=== PATIENT | female | born 1955 | race Caucasian/White ===

== ENCOUNTER 2020-07-30 11:01 | Day surgery (SDC) | payer OTHER ==
[~2020-07-30 11:01] MED LIST: Lactated Ringers 1,000 ML IV SCH; Sodium Chloride 0.9% 10 ML Syringe FLUSH PRN
[2020-07-30] MEDS ORDERED: Propofol 200 MG/20 ML SDV ONE (11:52)
--- NOTE | 2020-07-30 13:44 | OR ---
PREOPERATIVE DIAGNOSIS: Epigastric pain. POSTOPERATIVE DIAGNOSIS: Epigastric pain. PROCEDURE PERFORMED: Esophagogastroduodenoscopy with antral biopsy. INDICATIONS: Ms. Morgan is a 65-year-old female with history of ongoing epigastric pain, some lower abdominal pain, and some intermittent diarrhea, presents for EGD for further evaluation. PROCEDURE IN DETAIL: This was done in the endoscopy suite. Sedation was given per anesthesia. The scope was inserted down the esophagus into the stomach through the duodenum into the first and second portion of duodenum. First and second portion of duodenum were normal. Scope was slowly withdrawn. Mild-to- moderate antral gastritis. Biopsies were taken for H pylori. The scope was retroflexed. Small hiatal hernia. The scope was slowly withdrawn. Mild esophagitis seen. The remainder of the esophagus was normal. FINAL DIAGNOSES: 1. Mild esophagitis, small hiatal hernia. 2. Mild antral gastritis. BKD: 07/30/2020 12:26:15 MODL: 07/30/2020 12:54:09 /[id number]
== END 2020-07-30 13:35 | disposition home or self-care (01) ==
LOC: VM.SDS 11:01
PROVIDERS: ATTEND Surgery
DX: K29.50 Unspecified chronic gastritis without bleeding (principal); K44.9 Diaphragmatic hernia without obstruction or gangrene; K20.90 Esophagitis, unspecified without bleeding; I12.9 Hypertensive chronic kidney disease with stage 1 through stage 4 chronic kidney disease, or unspecified chronic kidney disease; N18.31 Chronic kidney disease, stage 3a; F33.0 Major depressive disorder, recurrent, mild; E78.2 Mixed hyperlipidemia; F41.9 Anxiety disorder, unspecified; Z01.812 Encounter for preprocedural laboratory examination; Z20.828 Contact with and (suspected) exposure to other viral communicable diseases; Z98.890 Other specified postprocedural states; Z88.0 Allergy status to penicillin; Z91.048 Other nonmedicinal substance allergy status; Z79.899 Other long term (current) drug therapy; Z79.82 Long term (current) use of aspirin
CPT/HCPCS: 43239; 87635; J2704; J7120; 00811; U0002

== ENCOUNTER 2021-08-02 06:43 | Emergency (ER) | payer OTHER ==
[2021-08-02] MEDS ORDERED: Morphine 4 MG/ML Syringe IVPUSH ONE (07:27)
[2021-08-02] MEDS ORDERED: Metoclopramide 10 MG/2 ML SDV IVPUSH ONE (07:27)
[2021-08-02] MEDS ORDERED: Sodium Chloride 0.9% 1,000 ML IV SCH (07:30)
--- NOTE | 2021-08-02 07:39 | EDM.PDOC ---
ED HPI GENERAL MEDICAL PROBLEM - General Chief Complaint: General Stated Complaint: Nausea, vomiting, post surgical Time Seen by Provider: 08/02/21 07:00 Source of Information: Reports: Patient History Limitations: Reports: No Limitations - History of Present Illness INITIAL COMMENTS - FREE TEXT/NARRATIVE: Pt. presents to ER with complaints of nausea, vomiting and abdominal cramping. Pt. underwent a same day laproscopic appendectomy and salpingo-oophorectomy on 07/30/2021. Pt. has a previous history of hysterectomy and cholecystectomy. Pt. states that her symptoms started today at 0200. She is unable to hold down fluids at this time. She states that the frequency of vomiting has decreased somewhat. Pt. has been feeling well up until this AM. She has been eating and drinking. She has been passing gas and has had bowel movements. She denies any fever or chills. No chest pain or shortness of breath. Pt. was prescribed lortab 5/325mg and states that she has only needed to take a couple of doses, as the post op pain has been minimal. Onset: Today Onset Date: 08/02/21 Location: Reports: Abdomen general abdomen Pain Score (Numeric/FACES): 6 abdomen incision Pain Score (Numeric/FACES): 4 - Related Data Allergies Allergy/AdvReac Type Severity Reaction Status Date / Time penicillin V Allergy Hives Verified 08/02/21 07:22 Home Meds: Home Meds Aspirin 81 mg PO DAILY 07/24/20 [History] Calcium Carbonate/Vitamin D3 [Calcium 600 mg-D3 10 Mcg Sfgl] 1 tab PO TID 07/24/20 [History] Glucosamine/D3/Boswellia Jana [Osteo Bi-Flex Caplet] 1 tab PO DAILY 07/24/20 [History] Loratadine [Claritin] 10 mg PO DAILY 07/24/20 [History] Triamterene/Hydrochlorothiazid [Dyazide 37.5-25 Capsule] 1 cap PO DAILY 07/24/20 [History] Hydrocodone/Acetaminophen [HYDROcodone-Acetaminophen 5-325 MG] 1 tab PO Q4H 08/02/21 [History] Sertraline [Zoloft] 100 mg PO DAILY 08/02/21 [History] Past Medical History HEENT History: Reports: Other (See Below) Other HEENT History: BILATERAL MYOPIC DEGENERATION Cardiovascular History: Reports: High Cholesterol, Hypertension Genitourinary History: Reports: Other (See Below) Other Genitourinary History: leiomyoma of utererus; stage 3a CKD; solitary breast cyst Musculoskeletal History: Reports: Other (See Below) Other Musculoskeletal History: De Quervain's tenosynovitis Psychiatric History: Reports: Depression Hematologic History: Reports: Anemia ED ROS GENERAL - Review of Systems Review Of Systems: See Below Constitutional: Reports: Decreased Appetite. Denies: Fever, Chills, Night Sweats HEENT: Reports: No Symptoms Respiratory: Reports: No Symptoms Cardiovascular: Reports: No Symptoms Endocrine: Reports: No Symptoms GI/Abdominal: Reports: Abdominal Pain, Decreased Appetite, Distension, Nausea, Vomiting. Denies: Black Stool, Bloody Stool, Hematemesis, Hematochezia, Melena : Reports: No Symptoms Musculoskeletal: Reports: No Symptoms Skin: Reports: No Symptoms Neurological: Reports: No Symptoms Psychiatric: Reports: No Symptoms Hematologic/Lymphatic: Reports: No Symptoms Immunologic: Reports: No Symptoms ED EXAM, GENERAL - Physical Exam Exam: See Below Exam Limited By: No Limitations General Appearance: Alert, WD/WN, No Apparent Distress Throat/Mouth: Normal Lips, Normal Oropharynx, Normal Voice, No Airway Compromise Head: Atraumatic, Normocephalic Neck: Normal Inspection Respiratory/Chest: No Respiratory Distress, Lungs Clear, Normal Breath Sounds, No Accessory Muscle Use, Chest Non-Tender Cardiovascular: Normal Peripheral Pulses, Regular Rate, Rhythm, No Edema, No JVD GI/Abdominal: Soft, Non-Tender, No Distention, No Mass (Female) Exam: Deferred Rectal (Female) Exam: Deferred Back Exam: Normal Inspection, Full Range of Motion Extremities: Normal Inspection, Normal Range of Motion, Non-Tender, No Pedal Edema, Normal Capillary Refill Neurological: Alert, Oriented, CN II-XII Intact, Normal Cognition, Normal Reflexes, No Motor/Sensory Deficits Psychiatric: Normal Affect, Normal Mood Skin Exam: Warm, Dry, Intact, Normal Color, No Rash Course - Vital Signs Last Recorded V/S: Last Vital Signs Temp 36.1 C 08/02/21 06:43 Pulse 68 08/02/21 08:54 Resp 14 08/02/21 08:54 BP 117/75 08/02/21 08:54 Pulse Ox 97 08/02/21 08:54 - Orders/Labs/Meds Orders: Active Orders 24 hr Category Date Time Status Gastrointestinal Tube Mgmt [RC] ASDIRECTED Care 08/02/21 10:28 Active Lactated Ringers [Ringers, Lactated] 1,000 ml Med 08/02/21 10:15 Active IV ASDIRECTED Sodium Chloride 0.9% [Normal Saline] 1,000 ml Med 08/02/21 07:30 Active IV ASDIRECTED NG [Nasogastric Orogastric Tube Insertion] [OM.PC] Oth 08/02/21 10:28 Ordered Routine Medication Orders Sodium Chloride (Normal Saline) 1,000 mls @ 1,000 mls/hr IV ASDIRECTED AKIN Last Admin: 08/02/21 07:39 Dose: 1,000 mls/hr Documented by: LIUDMILA Lactated Ringer's (Ringers, Lactated) 1,000 mls @ 250 mls/hr IV ASDIRECTED AKIN Last Admin: 08/02/21 10:13 Dose: 250 mls/hr Documented by: LIUDMILA Labs: Laboratory Tests 08/02/21 08/02/21 08/02/21 Range/Units 07:12 07:12 07:12 WBC 13.4 H (4.0-10.0) x10^3/uL RBC 5.75 H (4.00-5.50) x10^6/uL Hgb 16.6 H (12.0-16.0) g/dL Hct 48.3 H (33.0-47.0) % MCV 84.0 (78.0-93.0) fL MCH 28.9 (26.0-32.0) pg MCHC 34.4 (32.0-36.0) g/dL RDW Coeff of Nestor 12.2 (10.0-15.0) % Plt Count 265 (130-400) x10^3/uL Immature Gran % (Auto) 0.10 (0.00-0.43) % Neut % (Auto) 83.3 H (50.0-80.0) % Lymph % (Auto) 7.1 L (25.0-50.0) % Russell % (Auto) 5.6 (2.0-11.0) % Eos % (Auto) 3.6 (0.0-4.0) % Baso % (Auto) 0.3 (0.2-1.2) % Neut # (Auto) 11.1 H (1.8-7.7) x10^3/uL Lymph # (Auto) 1.0 (1.0-4.8) x10^3/uL Russell # (Auto) 0.8 (0.0-0.8) x10^3/uL Eos # (Auto) 0.5 (0.0-0.5) x10^3/uL Baso # (Auto) 0.0 (0.0-0.2) x10^3/uL Immature Gran # (Auto) 0.02 (0.00-0.07) x10^3/uL Sodium 141 (136-145) mmol/L Potassium 3.5 (3.5-5.1) mmol/L Chloride 99 (98-107) mmol/L Carbon Dioxide 29 (21-32) mmol/L Anion Gap 16.5 H (5-15) mmol/L BUN 23 H (7-18) mg/dL Creatinine 1.3 H (0.55-1.02) mg/dL Est Cr Clr Drug Dosing 37.75 mL/min Estimated GFR (MDRD) 41 Glucose 159 H (70-99) mg/dL Lactic Acid (0.4-2.0) mmol/L Calcium 10.6 H (8.5-10.1) mg/dL Corrected Calcium 10.5 H (8.5-10.1) mg/dL Total Bilirubin 0.7 (0.2-1.0) mg/dL AST 22 (15-37) U/L ALT 27 (14-59) U/L Alkaline Phosphatase 91 (46-116) U/L C-Reactive Protein 7.9 H (<=0.9) mg/dL Total Protein 7.5 (6.4-8.2) g/dL Albumin 4.1 (3.4-5.0) g/dL Globulin 3.4 Albumin/Globulin Ratio 1.21 Procalcitonin (0.1-0.50) ng/mL 08/02/21 08/02/21 Range/Units 07:12 07:32 WBC (4.0-10.0) x10^3/uL RBC (4.00-5.50) x10^6/uL Hgb (12.0-16.0) g/dL Hct (33.0-47.0) % MCV (78.0-93.0) fL MCH (26.0-32.0) pg MCHC (32.0-36.0) g/dL RDW Coeff of Nestor (10.0-15.0) % Plt Count (130-400) x10^3/uL Immature Gran % (Auto) (0.00-0.43) % Neut % (Auto) (50.0-80.0) % Lymph % (Auto) (25.0-50.0) % Russell % (Auto) (2.0-11.0) % Eos % (Auto) (0.0-4.0) % Baso % (Auto) (0.2-1.2) % Neut # (Auto) (1.8-7.7) x10^3/uL Lymph # (Auto) (1.0-4.8) x10^3/uL Russell # (Auto) (0.0-0.8) x10^3/uL Eos # (Auto) (0.0-0.5) x10^3/uL Baso # (Auto) (0.0-0.2) x10^3/uL Immature Gran # (Auto) (0.00-0.07) x10^3/uL Sodium (136-145) mmol/L Potassium (3.5-5.1) mmol/L Chloride (98-107) mmol/L Carbon Dioxide (21-32) mmol/L Anion Gap (5-15) mmol/L BUN (7-18) mg/dL Creatinine (0.55-1.02) mg/dL Est Cr Clr Drug Dosing mL/min Estimated GFR (MDRD) Glucose (70-99) mg/dL Lactic Acid 1.9 (0.4-2.0) mmol/L Calcium (8.5-10.1) mg/dL Corrected Calcium (8.5-10.1) mg/dL Total Bilirubin (0.2-1.0) mg/dL AST (15-37) U/L ALT (14-59) U/L Alkaline Phosphatase (46-116) U/L C-Reactive Protein (<=0.9) mg/dL Total Protein (6.4-8.2) g/dL Albumin (3.4-5.0) g/dL Globulin Albumin/Globulin Ratio Procalcitonin 0.08 L (0.1-0.50) ng/mL Meds: Medications Generic Name Dose Route Start Last Admin Trade Name Freq PRN Reason Stop Dose Admin Sodium Chloride 1,000 mls @ 1,000 mls/hr 08/02/21 07:30 08/02/21 07:39 Normal Saline IV 1,000 mls/hr ASDIRECTED AKIN Administration Lactated Ringer's 1,000 mls @ 250 mls/hr 08/02/21 10:15 08/02/21 10:13 Ringers, Lactated IV 250 mls/hr ASDIRECTED AKIN Administration Discontinued Medications Generic Name Dose Route Start Last Admin Trade Name Freq PRN Reason Stop Dose Admin Iopamidol 75 ml 08/02/21 09:34 08/02/21 10:22 Iopamidol 612 Mg/Ml 100 Ml Bottle IVPUSH 08/02/21 09:35 75 ml ONETIME ONE Administration Metoclopramide HCl 10 mg 08/02/21 07:27 08/02/21 07:37 Metoclopramide 10 Mg/2 Ml Sdv IVPUSH 08/02/21 07:28 10 mg ONETIME ONE Administration Morphine Sulfate 4 mg 08/02/21 07:27 08/02/21 07:39 Morphine 4 Mg/Ml Syringe IVPUSH 08/02/21 07:28 4 mg ONETIME ONE Administration - Radiology Interpretation Free Text/Narrative:: SBO secondary to incarcerated umbilical hernia - Re-Assessments/Exams Free Text/Narrative Re-Assessment/Exam: IV access established. She was given a liter of NS in ER, then started on LR at 250/hr. Pt. was given IV dilaudid and reglan. She remained relatively pain free and without significant nausea/vomiting during stay. Initially attempted to send pt. to [facility] for incarcerated hernia but they have no beds and were unable to accept pt. pt. will be transferred to [facility]. [facility] is accepting. Departure - Departure Time of Disposition: 11:36 Disposition: DC/Tfer to Acute Hospital 02 Clinical Impression: Incarcerated hernia, SBO (small bowel obstruction) - Discharge Information Referrals: Jodi Dodd DO [Primary Care Provider] - Forms: ED Department Discharge, Interfacility Transfer [id number] Sepsis Event Note (ED) - Evaluation Sepsis Screening Result: No Definite Risk - Focused Exam Vital Signs: Vital Signs Temp Pulse Resp BP Pulse Ox 08/02/21 08:54 68 14 117/75 97 08/02/21 07:55 72 12 116/82 98 08/02/21 06:43 36.1 C 74 16 131/99 H 98 - Problem List Review Problem List Initiated/Reviewed/Updated: Yes - My Orders Last 24 Hours: My Active Orders 08/02/21 07:30 Sodium Chloride 0.9% [Normal Saline] 1,000 ml IV ASDIRECTED 08/02/21 10:15 Lactated Ringers [Ringers, Lactated] 1,000 ml IV ASDIRECTED 08/02/21 10:28 Gastrointestinal Tube Mgmt [RC] ASDIRECTED NG [Nasogastric Orogastric Tube Insertion] [OM.PC] Routine - Assessment/Plan Last 24 Hours: My Active Orders 08/02/21 07:30 Sodium Chloride 0.9% [Normal Saline] 1,000 ml IV ASDIRECTED 08/02/21 10:15 Lactated Ringers [Ringers, Lactated] 1,000 ml IV ASDIRECTED 08/02/21 10:28 Gastrointestinal Tube Mgmt [RC] ASDIRECTED NG [Nasogastric Orogastric Tube Insertion] [OM.PC] Routine Plan: Pt. will be transferred to [facility]. She is a code 1. [facility] was unable to accept patient. Pt. will be transported via [facility] ground ambulance. Report was called to JORGE L Young.
[2021-08-02 07:44] LABS: ANION GAP 16.5 mmol/L (5-15)
--- NOTE | 2021-08-02 08:04 | CR ---
[id number] RAD/RAD Abd Flat and Upright 2V Exam: RAD Abd Flat and Upright 2V Clinical Data: ABDOMINAL PAIN COMPARISON: CORRELATION IS MADE WITH THE CAT SCAN OF JULY 24, 2020 FINDINGS: There is small bowel distention There is no free air There are surgical changes. IMPRESSION: SMALL BOWEL OBSTRUCTION CONSIDER CAT SCAN Lion Daniel MD 08/02/21 0802 Thank you for allowing us to participate in the care of your patient.
[2021-08-02] MEDS ORDERED: Iopamidol 612 MG/ML 100 ML Bottle IVPUSH ONE (09:34)
[2021-08-02] MEDS ORDERED: Lactated Ringers 1,000 ML IV SCH (10:15)
--- NOTE | 2021-08-02 10:25 | CT ---
[id number] CT/CT Abdomen Pelvis W IV EXAM: CT Abdomen Pelvis W IV INDICATION: NAUSEA,VOMITTING,ABDOMEN PAIN,S/P APPY 07/30. COMPARISON: July 24, 2010. DISCUSSION: The proximal small bowel and stomach are fluid-filled and mildly dilated with the small bowel measuring up to about 31 mm. Transition point at a bowel containing umbilical hernia. These findings are consistent with incarceration. There is a small volume of free fluid in the pelvis. No pneumatosis or free air. Infiltrating subcutaneous edema in the abdominal wall. Scattered subcentimeter hepatic hypodensities are too small to further characterize, but of doubtful clinical significance. Prior cholecystectomy. 20 mm simple appearing cyst lower pole left kidney. Probable hysterectomy. Disc degeneration L2-L3. The pancreas, spleen, adrenal glands, right kidney, large bowel and distal small bowel are normal in appearance. IMPRESSION: 1. Mid small bowel obstruction secondary to an incarcerated umbilical hernia. Suraj Pitts MD 08/02/21 [phone] Thank you for allowing us to participate in the care of your patient.
== END 2021-08-02 12:10 | disposition short-term general hospital (02) ==
LOC: VM.ED 06:43
DX: K56.609 Unspecified intestinal obstruction, unspecified as to partial versus complete obstruction (principal); K46.0 Unspecified abdominal hernia with obstruction, without gangrene; I10 Essential (primary) hypertension; Z88.0 Allergy status to penicillin; Z79.82 Long term (current) use of aspirin; Z79.899 Other long term (current) drug therapy; Z90.710 Acquired absence of both cervix and uterus; Z90.49 Acquired absence of other specified parts of digestive tract; Z90.722 Acquired absence of ovaries, bilateral
CPT/HCPCS: 36415; 74019; 74177; 80053; 83605; 84145; 85025; 86140; 96374; 96375; 99285-25; J2270; J2765; J7030; J7120; Q9967

== ENCOUNTER 2021-08-06 09:10 | Inpatient (IN) | payer OTHER ==
[2021-08-06] MEDS ORDERED: diphenhydrAMINE 50 MG/ML SDV IVPUSH ONE (09:34)
[2021-08-06] MEDS ORDERED: Ondansetron 4 MG/2 ML SDV IV ONE (09:34)
[2021-08-06] MEDS ORDERED: Lactated Ringers 1,000 ML IV ONE (09:53)
--- NOTE | 2021-08-06 09:54 | EDM.PDOC ---
ED HPI GENERAL MEDICAL PROBLEM - General Chief Complaint: Gastrointestinal Problem Stated Complaint: VOMITTING Time Seen by Provider: 08/06/21 09:35 Source of Information: Reports: Patient History Limitations: Reports: No Limitations - History of Present Illness INITIAL COMMENTS - FREE TEXT/NARRATIVE: Patient comes emergency department with complaints of nausea vomiting abdominal pain and distention. This patient about 8 days ago had a surgery at where she had bilateral ovaries removed as well as her appendix removed laparoscopically. On Thursday she was seen in the emergency department here and she had ischemic incarcerated umbilical hernia. She was transferred to [facility] for emergent surgery did not have any beds available. She was discharged from the hospital yesterday following an ischemic incarcerated umbilical hernia. And some nausea on the way home from the hospital. Last night she started having more abdominal distention and bloating she vomited about 8 times during the night. She has dark brownish type vomit. She really does not have a lot of abdominal pain. She has been passing gas. She had one very small hard bowel movement at home. No fever no chills. No dysuria urinary frequency. She does complain of abdominal distention and bloating. Lower Abdomen Pain Score (Numeric/FACES): 2 - Related Data Allergies Allergy/AdvReac Type Severity Reaction Status Date / Time penicillin V Allergy Hives Verified 08/06/21 09:41 Home Meds: Home Meds Loratadine [Claritin] 10 mg PO DAILY PRN 07/24/20 [History] Triamterene/Hydrochlorothiazid [Dyazide 37.5-25 Capsule] 1 cap PO DAILY 07/24/20 [History] Aspirin [Aspirin EC] 81 mg PO DAILY 08/06/21 [History] Calcium Carbonate/Vitamin D3 [Caltrate-600 with Vit D Tab] 1 each PO BIDMEALS 08/06/21 [History] [id number] 149-Hyal [Glucosamine-Chondr Complex Tab] 1 each PO DAILY 08/06/21 [History] Sertraline [Zoloft] 50 mg PO DAILY 08/06/21 [History] Simvastatin 10 mg PO DAILY 08/06/21 [History] oxyCODONE 5 - 10 mg PO Q4H PRN 08/06/21 [History] polyethylene glycoL 3350 [MiraLAX] 17 gm PO DAILY 08/06/21 [History] Past Medical History HEENT History: Reports: Other (See Below) Other HEENT History: BILATERAL MYOPIC DEGENERATION Cardiovascular History: Reports: High Cholesterol, Hypertension Genitourinary History: Reports: Other (See Below) Other Genitourinary History: leiomyoma of utererus; stage 3a CKD; solitary breast cyst Musculoskeletal History: Reports: Other (See Below) Other Musculoskeletal History: De Quervain's tenosynovitis Psychiatric History: Reports: Depression Hematologic History: Reports: Anemia - Past Surgical History GI Surgical History: Reports: Cholecystectomy Other GI Surgeries/Procedures: incarcerated hernia Female Surgical History: Reports: Hysterectomy Social & Family History - Tobacco Use Tobacco Use Status *Q: Unknown Ever Used Tobacco ED ROS GENERAL - Review of Systems Review Of Systems: Comprehensive ROS is negative, except as noted in HPI. ED EXAM, GI/ABD - Physical Exam Exam: See Below Exam Limited By: No Limitations General Appearance: Alert, WD/WN, No Apparent Distress Ears: Normal External Exam Nose: Normal Inspection Throat/Mouth: Normal Inspection Head: Atraumatic, Normocephalic Neck: Normal Inspection Respiratory/Chest: No Respiratory Distress, Lungs Clear, Normal Breath Sounds, No Accessory Muscle Use, Chest Non-Tender Cardiovascular: Normal Peripheral Pulses, Regular Rate, Rhythm GI/Abdominal Exam: Distended, Abnormal Bowel Sounds (Decreased almost absent bowel sounds). No: Guarding, Rigid, Rebound, Tender (Female) Exam: Deferred Rectal (Female) Exam: Deferred Extremities: Normal Inspection Neurological: Alert, Oriented, No Motor/Sensory Deficits Psychiatric: Normal Affect, Normal Mood Skin Exam: Warm, Dry, Intact, Pallor Course - Vital Signs Last Recorded V/S: Last Vital Signs Temp 99.3 F 08/06/21 18:10 Pulse 77 08/06/21 18:10 Resp 20 08/06/21 18:10 BP 132/71 08/06/21 18:10 Pulse Ox 96 08/06/21 18:10 - Orders/Labs/Meds Orders: Active Orders 24 hr Category Date Time Status Sodium Chloride 0.9% [Saline Flush] Med 08/06/21 09:34 Active 10 ml FLUSH ASDIRECTED PRN Peripheral IV Insertion Adult [OM.PC] Stat Oth 08/06/21 09:33 Ordered Medication Orders Aspirin (Aspirin 81 Mg Tab.Ec) 81 mg PO DAILY AKIN Promethazine HCl 12.5 mg/ (Sodium Chloride) 100 mls @ 200 mls/hr IV Q6H PRN PRN Reason: Nausea/Vomiting Lactated Ringer's (Ringers, Lactated) 1,000 mls @ 100 mls/hr IV ASDIRECTED AKIN Last Admin: 08/06/21 14:45 Dose: 100 mls/hr Documented by: SHMUEL Loratadine (Loratadine 10 Mg Tab) 10 mg PO DAILY PRN PRN Reason: allergy Ondansetron HCl (Ondansetron 4 Mg/2 Ml Sdv) 4 mg IV Q6H PRN PRN Reason: Nausea/Vomiting Last Admin: 08/06/21 15:03 Dose: 4 mg Documented by: SHMUEL Oxycodone HCl (Oxycodone 5 Mg Tab) 5 mg PO Q4H PRN PRN Reason: moderate pain Oxycodone HCl (Oxycodone 5 Mg Tab) 10 mg PO Q4H PRN PRN Reason: severe pain Polyethylene Glycol (Polyethylene Glycol 3350 Powder 17 Gm Packet) 17 gm PO DAILY [facility] Sertraline HCl (Sertraline 50 Mg Tab) 50 mg PO DAILY [facility] Simvastatin (Simvastatin 20 Mg Tab) 10 mg PO DAILY [facility] Sodium Chloride (Sodium Chloride 0.9% 10 Ml Syringe) 10 ml FLUSH ASDIRECTED PRN PRN Reason: Keep Vein Open Last Admin: 08/06/21 15:03 Dose: 10 ml Documented by: SHMUEL Triamterene/Hydrochlorothiazide (Hydrochlorothiazide/Triamterene 25-37.5 Tab) 1 each PO DAILY [facility] Labs: Laboratory Tests 08/06/21 08/06/21 08/06/21 Range/Units 09:48 09:48 09:48 WBC 9.4 (4.0-10.0) x10^3/uL RBC 4.60 (4.00-5.50) x10^6/uL Hgb 13.6 D (12.0-16.0) g/dL Hct 38.7 (33.0-47.0) % MCV 84.1 (78.0-93.0) fL MCH 29.6 (26.0-32.0) pg MCHC 35.1 (32.0-36.0) g/dL RDW Coeff of Nestor 12.1 (10.0-15.0) % Plt Count 260 (130-400) x10^3/uL Immature Gran % (Auto) 0.10 (0.00-0.43) % Neut % (Auto) 77.0 (50.0-80.0) % Lymph % (Auto) 10.8 L (25.0-50.0) % [place] % (Auto) 5.6 (2.0-11.0) % Eos % (Auto) 5.8 H (0.0-4.0) % Baso % (Auto) 0.7 (0.2-1.2) % Neut # (Auto) 7.2 (1.8-7.7) x10^3/uL Lymph # (Auto) 1.0 (1.0-4.8) x10^3/uL [place] # (Auto) 0.5 (0.0-0.8) x10^3/uL Eos # (Auto) 0.5 (0.0-0.5) x10^3/uL Baso # (Auto) 0.1 (0.0-0.2) x10^3/uL Immature Gran # (Auto) 0.01 (0.00-0.07) x10^3/uL Sodium 144 (136-145) mmol/L Potassium 3.2 L (3.5-5.1) mmol/L Chloride 102 (98-107) mmol/L Carbon Dioxide 31 (21-32) mmol/L Anion Gap 14.2 (5-15) mmol/L BUN 12 (7-18) mg/dL Creatinine 0.9 (0.55-1.02) mg/dL Est Cr Clr Drug Dosing TNP Estimated GFR (MDRD) > 60 Glucose 118 H (70-99) mg/dL Lactic Acid 1.5 (0.4-2.0) mmol/L Calcium 10.1 (8.5-10.1) mg/dL Corrected Calcium 10.4 H (8.5-10.1) mg/dL Magnesium (1.8-2.4) mg/dL Total Bilirubin 0.5 (0.2-1.0) mg/dL AST 21 (15-37) U/L ALT 26 (14-59) U/L Alkaline Phosphatase 71 (46-116) U/L C-Reactive Protein 9.2 H (<=0.9) mg/dL Total Protein 6.9 (6.4-8.2) g/dL Albumin 3.6 (3.4-5.0) g/dL Globulin 3.3 Albumin/Globulin Ratio 1.09 Lipase 447 H (73-393) U/L Urine Color (YELLOW) Urine Appearance (CLEAR) Urine pH (5.0-8.0) Ur Specific [place] Urine Protein (NEGATIVE) mg/dL Urine Glucose (UA) (NEGATIVE) mg/dL Urine Ketones (NEGATIVE) mg/dL Urine Occult Blood (NEGATIVE) Urine Nitrite (NEGATIVE) Urine Bilirubin (NEGATIVE) Urine Urobilinogen (0.2) EU/dL Ur Leukocyte Esterase (NEGATIVE) U Hyaline Cast (Auto) Urine RBC (NOT SEEN) /HPF Urine WBC (NOT SEEN) /HPF Ur Squamous Epith Cells (NOT SEEN) /HPF Urine Bacteria (NOT SEEN) /HPF Urine Mucus (NOT SEEN) /LPF 08/06/21 08/06/21 Range/Units 09:48 10:13 WBC (4.0-10.0) x10^3/uL RBC (4.00-5.50) x10^6/uL Hgb (12.0-16.0) g/dL Hct (33.0-47.0) % MCV (78.0-93.0) fL MCH (26.0-32.0) pg MCHC (32.0-36.0) g/dL RDW Coeff of Nestor (10.0-15.0) % Plt Count (130-400) x10^3/uL Immature Gran % (Auto) (0.00-0.43) % Neut % (Auto) (50.0-80.0) % Lymph % (Auto) (25.0-50.0) % [place] % (Auto) (2.0-11.0) % Eos % (Auto) (0.0-4.0) % Baso % (Auto) (0.2-1.2) % Neut # (Auto) (1.8-7.7) x10^3/uL Lymph # (Auto) (1.0-4.8) x10^3/uL [place] # (Auto) (0.0-0.8) x10^3/uL Eos # (Auto) (0.0-0.5) x10^3/uL Baso # (Auto) (0.0-0.2) x10^3/uL Immature Gran # (Auto) (0.00-0.07) x10^3/uL Sodium (136-145) mmol/L Potassium (3.5-5.1) mmol/L Chloride (98-107) mmol/L Carbon Dioxide (21-32) mmol/L Anion Gap (5-15) mmol/L BUN (7-18) mg/dL Creatinine (0.55-1.02) mg/dL Est Cr Clr Drug Dosing Estimated GFR (MDRD) Glucose (70-99) mg/dL Lactic Acid (0.4-2.0) mmol/L Calcium (8.5-10.1) mg/dL Corrected Calcium (8.5-10.1) mg/dL Magnesium 1.7 L (1.8-2.4) mg/dL Total Bilirubin (0.2-1.0) mg/dL AST (15-37) U/L ALT (14-59) U/L Alkaline Phosphatase (46-116) U/L C-Reactive Protein (<=0.9) mg/dL Total Protein (6.4-8.2) g/dL Albumin (3.4-5.0) g/dL Globulin Albumin/Globulin Ratio Lipase (73-393) U/L Urine Color Yellow (YELLOW) Urine Appearance Clear (CLEAR) Urine pH >=9.0 H (5.0-8.0) Ur Specific [place] 1.015 Urine Protein Trace H (NEGATIVE) mg/dL Urine Glucose (UA) Negative (NEGATIVE) mg/dL Urine Ketones 15 H (NEGATIVE) mg/dL Urine Occult Blood Trace-intact H (NEGATIVE) Urine Nitrite Negative (NEGATIVE) Urine Bilirubin Negative (NEGATIVE) Urine Urobilinogen 1.0 (0.2) EU/dL Ur Leukocyte Esterase Negative (NEGATIVE) U Hyaline Cast (Auto) Rare Urine RBC 0-5 (NOT SEEN) /HPF Urine WBC 0-5 (NOT SEEN) /HPF Ur Squamous Epith Cells Not seen (NOT SEEN) /HPF Urine Bacteria Not seen (NOT SEEN) /HPF Urine Mucus Not seen (NOT SEEN) /LPF Meds: Medications Generic Name Dose Route Start Last Admin Trade Name Freq PRN Reason Stop Dose Admin Aspirin 81 mg 08/07/21 08:00 Aspirin 81 Mg Tab.Ec PO DAILY AKIN Promethazine HCl 12.5 mg/ 100 mls @ 200 mls/hr 08/06/21 13:36 Sodium Chloride IV Q6H PRN Nausea/Vomiting Lactated Ringer's 1,000 mls @ 100 mls/hr 08/06/21 13:45 08/06/21 14:45 Ringers, Lactated IV 100 mls/hr ASDIRECTED AKIN Administration Loratadine 10 mg 08/06/21 13:38 Loratadine 10 Mg Tab PO DAILY PRN allergy Ondansetron HCl 4 mg 08/06/21 13:36 08/06/21 15:03 Ondansetron 4 Mg/2 Ml Sdv IV 4 mg Q6H PRN Administration Nausea/Vomiting Oxycodone HCl 5 mg 08/06/21 13:38 Oxycodone 5 Mg Tab PO Q4H PRN moderate pain Oxycodone HCl 10 mg 08/06/21 13:47 Oxycodone 5 Mg Tab PO Q4H PRN severe pain Polyethylene Glycol 17 gm 08/07/21 08:00 Polyethylene Glycol 3350 Powder 17 Gm Packet PO DAILY [facility] Sertraline HCl 50 mg 08/07/21 08:00 Sertraline 50 Mg Tab PO DAILY [facility] Simvastatin 10 mg 08/07/21 08:00 Simvastatin 20 Mg Tab PO DAILY [facility] Sodium Chloride 10 ml 08/06/21 09:34 08/06/21 15:03 Sodium Chloride 0.9% 10 Ml Syringe FLUSH 10 ml ASDIRECTED PRN Administration Keep Vein Open Triamterene/Hydrochlorothiazide 1 each 08/07/21 08:00 Hydrochlorothiazide/Triamterene 25-37.5 Tab PO DAILY [facility] Discontinued Medications Generic Name Dose Route Start Last Admin Trade Name Freq PRN Reason Stop Dose Admin Diphenhydramine HCl 12.5 mg 08/06/21 09:34 08/06/21 10:17 Diphenhydramine 50 Mg/Ml Sdv IVPUSH 08/06/21 09:35 12.5 mg ONETIME ONE Administration Heparin Sodium (Porcine) 5,000 units 08/06/21 16:00 08/06/21 15:04 Heparin Sodium 5,000 Units/Ml Vial SUBCUT 5,000 units Q8H AKIN Administration Lactated Ringer's 1,000 mls @ 125 mls/hr 08/06/21 09:53 08/06/21 10:11 Ringers, Lactated IV 08/06/21 17:52 125 mls/hr ONETIME ONE Administration Potassium Chloride 10 meq/ 50 mls @ 50 mls/hr 08/06/21 12:16 08/06/21 12:25 Premix IV 08/06/21 13:15 50 mls/hr ONETIME ONE Administration Promethazine HCl 12.5 mg/ 100.5 mls @ 400 mls/hr 08/06/21 12:30 08/06/21 12:39 Sodium Chloride IV 08/06/21 12:45 400 mls/hr ONETIME ONE Administration Iopamidol 75 ml 08/06/21 10:50 08/06/21 11:04 Iopamidol 612 Mg/Ml 100 Ml Bottle IVPUSH 08/06/21 10:51 Not Given ONETIME ONE Ondansetron HCl 4 mg 08/06/21 09:34 08/06/21 10:12 Ondansetron 4 Mg/2 Ml Sdv IV 08/06/21 09:35 4 mg ONETIME ONE Administration - Re-Assessments/Exams Free Text/Narrative Re-Assessment/Exam: 08/06/21 09:53 IV was established labs are drawn. LR 500 mill bolus and 125 an hour. Benadryl Zofran for nausea. Laboratory evaluation is rather unremarkable. She has a normal lactic acid. Urinalysis is noninfectious. Covid is negative. Potassium is 3.2. [address] scan concern for a partial obstruction due to mass-effect from the hematoma at the anastomosis site. I called and spoke with Dr. Zarco at [facility] in [place]. HPI ER course findings and concerns were relayed to him. He would like the patient transferred back to his care and they will treat them conservatively at the hospital. Although they do not currently have any beds for transfer. He is comfortable with the patient staying here. Guidance for n.p.o. IV hydration pain and nausea management were given. We will keep in close contact with him on the phone if the patient worsens by any means. I discussed the findings and concerns with the patient. She would prefer not to go to [facility] which actually is okay as they do not have any beds. I discuss the concerns and the findings and she is very comfortable with medical conservative management at this time here in [place]. She did have a little recurrence of some nausea but she has not vomited I do not feel that she needs an NG tube at this time as she has no gastric distention. She was given some Phenergan. I spoke with Dr. Celis who is hone operator for the hospital. HPI ER COURSE findings and concerns were relayed to her. She came and saw the patient in the ED and will admit the patient. Departure - Departure Time of Disposition: 12:15 Disposition: Admitted As Inpatient 68 Clinical Impression: Small bowel obstruction, partial, Hypokalemia, Status post small bowel r esection - Discharge Information - My Orders Last 24 Hours: My Active Orders 08/06/21 09:33 Peripheral IV Insertion Adult [OM.PC] Stat 08/06/21 09:34 Sodium Chloride 0.9% [Saline Flush] 10 ml FLUSH ASDIRECTED PRN - Assessment/Plan Last 24 Hours: My Active Orders 08/06/21 09:33 Peripheral IV Insertion Adult [OM.PC] Stat 08/06/21 09:34 Sodium Chloride 0.9% [Saline Flush] 10 ml FLUSH ASDIRECTED PRN
[2021-08-06 10:12] LABS: CHLORIDE,CL 102 mmol/L (98-107); SODIUM,NA 144 mmol/L (136-145)
[2021-08-06 10:18] LABS: ANION GAP 14.2 mmol/L (5-15)
[2021-08-06] MEDS ORDERED: Iopamidol 612 MG/ML 100 ML Bottle IVPUSH ONE (10:50)
--- NOTE | 2021-08-06 11:29 | CT ---
[id number] CT/CT Abdomen Pelvis W IV EXAM: CT Abdomen Pelvis W IV INDICATION: RECENT SURGERY, ISCHEMIC BOWEL. NV. ABD PAIN COMPARISON: August 02, 2021 DISCUSSION: Mild cardiomegaly. Mild linear scarring or atelectasis in the imaged lung bases. There has been interval repair of abdominal wall hernia with reduction of the bowel loop. Changes of small bowel resection with a 49 x 40 x 37 mm hyperdense mass at the anastomotic site compatible with a hematoma. Bowel distal to the anastomosis is relatively decompressed suggesting at least partial obstruction which may be secondary to mass effect from the hematoma. There is infiltrating fluid within the midline abdominal wall incision. Small volume free fluid or in the abdomen and pelvis. A few subcentimeter hypodensities in the liver are too small to further characterize. Prior cholecystectomy. The pancreas, spleen, adrenal glands, kidneys and large bowel are normal in appearance. No adenopathy. IMPRESSION: 1. Interval repair of an abdominal wall hernia and small bowel resection. There is an apparent 49 mm hematoma along the anastomosis where there is evidence of at least partial obstruction which could relate to mass effect from the hematoma. Suraj Pitts MD 08/06/21 [id number] Thank you for allowing us to participate in the care of your patient.
[2021-08-06] MEDS ORDERED: Potassium Chloride Riders 10 MEQ in Premix Bag 1 BAG IV ONE (12:16)
--- NOTE | 2021-08-06 12:20 | PCM.HP.2 ---
H&P History of Present Illness - General Date of Service: 08/06/21 Source of Information: Patient History Limitations: Reports: No Limitations - History of Present Illness Initial Comments - Free Text/Narative: Mrs. Morgan is a 66 yo female with PMH of recent surgery for an incarcerated ventral hernia, hypertension, hyperlipidemia, and remote h/o psoriasis with arthritis who presented to the ER for nausea and vomiting overnight. She vomited 7 times overnight. Initially thin yellow, then progressing to darker brown. She was admitted 08/02 and just discharged from [facility] yesterday following hernia repair for her incarcerated ventral hernia. She had been tolerating a liquid diet while in [place]. She is not really having any pain. Her nausea is improved with zofran and phenergan in the ER and she has not vomited since ER presentation. She has been passing gas and did have a hard BM last evening and this morning. No fever or chills. Incision sites look good. She also is recovering from a URI. She had a COVID test last week that was negative. Lower Abdomen Pain Score (Numeric/FACES): 2 - Related Data Allergies/Adverse Reactions: Allergies Allergy/AdvReac Type Severity Reaction Status Date / Time penicillin V Allergy Hives Verified 08/06/21 09:41 Home Medications: Home Meds Loratadine [Claritin] 10 mg PO DAILY PRN 07/24/20 [History] Triamterene/Hydrochlorothiazid [Dyazide 37.5-25 Capsule] 1 cap PO DAILY 07/24/20 [History] Aspirin [Aspirin EC] 81 mg PO DAILY 08/06/21 [History] Calcium Carbonate/Vitamin D3 [Caltrate-600 with Vit D Tab] 1 each PO BIDMEALS 08/06/21 [History] Euftgwec-Xavijvc-Ksgx 149-Hyal [Glucosamine-Chondr Complex Tab] 1 each PO DAILY 08/06/21 [History] Sertraline [Zoloft] 50 mg PO DAILY 08/06/21 [History] Simvastatin 10 mg PO DAILY 08/06/21 [History] oxyCODONE 5 - 10 mg PO Q4H PRN 08/06/21 [History] polyethylene glycoL 3350 [MiraLAX] 17 gm PO DAILY 08/06/21 [History] Past Medical History HEENT History: Reports: Allergic Rhinitis, Other (See Below) Other HEENT History: BILATERAL MYOPIC DEGENERATION Cardiovascular History: Reports: High Cholesterol, Hypertension Respiratory History: Reports: None Gastrointestinal History: Reports: None Genitourinary History: Reports: Other (See Below) Other Genitourinary History: leiomyoma of utererus; stage 3a CKD; solitary breast cyst Musculoskeletal History: Reports: Other (See Below) Other Musculoskeletal History: De Quervain's tenosynovitis, psoriatic arthritis Neurological History: Reports: None Psychiatric History: Reports: Depression Endocrine/Metabolic History: Reports: None Hematologic History: Reports: Anemia Oncologic (Cancer) History: Reports: Malignant Melanoma Dermatologic History: Reports: Psoriasis - Infectious Disease History Infectious Disease History: Reports: None - Past Surgical History HEENT Surgical History: Reports: Cataract Surgery GI Surgical History: Reports: Appendectomy, Cholecystectomy, Hernia Repair/Other Other GI Surgeries/Procedures: incarcerated hernia Female Surgical History: Reports: Hysterectomy, Salpingo-Oophorectomy Musculoskeletal Surgical History: Reports: Other (See Below) (wrist fracture) Social & Family History - Family History Cardiac: Reports: CAD, High Cholesterol, Hypertension Oncologic: Reports: Renal - Tobacco Use Tobacco Use Status *Q: Never Tobacco User - Alcohol Use Alcohol Use History: No - Recreational Drug Use Recreational Drug Use: No - Living Situation & Occupation Living situation: Reports: , with Family 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) H&P Review of Systems - Review of Systems: Review Of Systems: See Below General: Reports: No Symptoms HEENT: Reports: Rhinitis, Sinus Congestion, Sore Throat Pulmonary: Reports: Cough. Denies: Shortness of Breath, Pleuritic Chest Pain Cardiovascular: Reports: No Symptoms Gastrointestinal: Reports: Constipation, Nausea, Vomiting. Denies: Abdominal Pain Genitourinary: Reports: No Symptoms Musculoskeletal: Reports: No Symptoms Skin: Reports: No Symptoms Psychiatric: Reports: No Symptoms Neurological: Reports: No Symptoms Exam - Exam Exam: See Below - Vital Signs Vital Signs: Last Vital Signs Temp 36.6 C 08/06/21 09:20 Pulse 80 08/06/21 09:20 Resp 18 08/06/21 09:20 BP 127/78 08/06/21 09:20 Pulse Ox 98 08/06/21 09:20 - Exam General: Alert, Oriented, Cooperative HEENT: Mucosa Moist & [place], Posterior Pharynx Clear, Pupils Equal, Pupils Reactive, TMs Clear Neck: Supple, Trachea Midline. No: Lymphadenopathy, Thyromegaly Lungs: Clear to Auscultation, Normal Respiratory Effort Cardiovascular: Regular Rate, Regular Rhythm, Normal S1, Normal S2 GI/Abdominal Exam: Normal Bowel Sounds, Soft, No Organomegaly, Distended (but soft), Tender (upper abdomen; no rebound, rigidity, or guarding) Extremities: Normal Inspection, Non-Tender, No Pedal Edema, Normal Capillary Refill Peripheral Pulses: 2+: Radial (L), Radial (R) Skin: Warm, Dry, Intact Neuro Extensive - Mental Status: Alert, Oriented x3 - Patient Data Lab Results Last 24 hrs: Laboratory Results - last 24 hr 08/06/21 08/06/21 08/06/21 Range/Units 09:48 09:48 09:48 WBC 9.4 (4.0-10.0) x10^3/uL RBC 4.60 (4.00-5.50) x10^6/uL Hgb 13.6 D (12.0-16.0) g/dL Hct 38.7 (33.0-47.0) % MCV 84.1 (78.0-93.0) fL MCH 29.6 (26.0-32.0) pg MCHC 35.1 (32.0-36.0) g/dL RDW Coeff of [place] 12.1 (10.0-15.0) % Plt Count 260 (130-400) x10^3/uL Immature Gran % (Auto) 0.10 (0.00-0.43) % Neut % (Auto) 77.0 (50.0-80.0) % Lymph % (Auto) 10.8 L (25.0-50.0) % [place] % (Auto) 5.6 (2.0-11.0) % Eos % (Auto) 5.8 H (0.0-4.0) % Baso % (Auto) 0.7 (0.2-1.2) % Neut # (Auto) 7.2 (1.8-7.7) x10^3/uL Lymph # (Auto) 1.0 (1.0-4.8) x10^3/uL [place] # (Auto) 0.5 (0.0-0.8) x10^3/uL Eos # (Auto) 0.5 (0.0-0.5) x10^3/uL Baso # (Auto) 0.1 (0.0-0.2) x10^3/uL Immature Gran # (Auto) 0.01 (0.00-0.07) x10^3/uL Sodium 144 (136-145) mmol/L Potassium 3.2 L (3.5-5.1) mmol/L Chloride 102 (98-107) mmol/L Carbon Dioxide 31 (21-32) mmol/L Anion Gap 14.2 (5-15) mmol/L BUN 12 (7-18) mg/dL Creatinine 0.9 (0.55-1.02) mg/dL Est Cr Clr Drug Dosing TNP Estimated GFR (MDRD) > 60 Glucose 118 H (70-99) mg/dL Lactic Acid 1.5 (0.4-2.0) mmol/L Calcium 10.1 (8.5-10.1) mg/dL Corrected Calcium 10.4 H (8.5-10.1) mg/dL Total Bilirubin 0.5 (0.2-1.0) mg/dL AST 21 (15-37) U/L ALT 26 (14-59) U/L Alkaline Phosphatase 71 (46-116) U/L C-Reactive Protein 9.2 H (<=0.9) mg/dL Total Protein 6.9 (6.4-8.2) g/dL Albumin 3.6 (3.4-5.0) g/dL Globulin 3.3 Albumin/Globulin Ratio 1.09 Lipase 447 H (73-393) U/L Urine Color (YELLOW) Urine Appearance (CLEAR) Urine pH (5.0-8.0) Ur Specific [place] Urine Protein (NEGATIVE) mg/dL Urine Glucose (UA) (NEGATIVE) mg/dL Urine Ketones (NEGATIVE) mg/dL Urine Occult Blood (NEGATIVE) Urine Nitrite (NEGATIVE) Urine Bilirubin (NEGATIVE) Urine Urobilinogen (0.2) EU/dL Ur Leukocyte Esterase (NEGATIVE) U Hyaline Cast (Auto) Urine RBC (NOT SEEN) /HPF Urine WBC (NOT SEEN) /HPF Ur Squamous Epith Cells (NOT SEEN) /HPF Urine Bacteria (NOT SEEN) /HPF Urine Mucus (NOT SEEN) /LPF 11/23/21 Range/Units 10:13 WBC (4.0-10.0) x10^3/uL RBC (4.00-5.50) x10^6/uL Hgb (12.0-16.0) g/dL Hct (33.0-47.0) % MCV (78.0-93.0) fL MCH (26.0-32.0) pg MCHC (32.0-36.0) g/dL RDW Coeff of [place] (10.0-15.0) % Plt Count (130-400) x10^3/uL Immature Gran % (Auto) (0.00-0.43) % Neut % (Auto) (50.0-80.0) % Lymph % (Auto) (25.0-50.0) % [place] % (Auto) (2.0-11.0) % Eos % (Auto) (0.0-4.0) % Baso % (Auto) (0.2-1.2) % Neut # (Auto) (1.8-7.7) x10^3/uL Lymph # (Auto) (1.0-4.8) x10^3/uL [place] # (Auto) (0.0-0.8) x10^3/uL Eos # (Auto) (0.0-0.5) x10^3/uL Baso # (Auto) (0.0-0.2) x10^3/uL Immature Gran # (Auto) (0.00-0.07) x10^3/uL Sodium (136-145) mmol/L Potassium (3.5-5.1) mmol/L Chloride (98-107) mmol/L Carbon Dioxide (21-32) mmol/L Anion Gap (5-15) mmol/L BUN (7-18) mg/dL Creatinine (0.55-1.02) mg/dL Est Cr Clr Drug Dosing Estimated GFR (MDRD) Glucose (70-99) mg/dL Lactic Acid (0.4-2.0) mmol/L Calcium (8.5-10.1) mg/dL Corrected Calcium (8.5-10.1) mg/dL Total Bilirubin (0.2-1.0) mg/dL AST (15-37) U/L ALT (14-59) U/L Alkaline Phosphatase (46-116) U/L C-Reactive Protein (<=0.9) mg/dL Total Protein (6.4-8.2) g/dL Albumin (3.4-5.0) g/dL Globulin Albumin/Globulin Ratio Lipase (73-393) U/L Urine Color Yellow (YELLOW) Urine Appearance Clear (CLEAR) Urine pH >=9.0 H (5.0-8.0) Ur Specific [place] 1.015 Urine Protein Trace H (NEGATIVE) mg/dL Urine Glucose (UA) Negative (NEGATIVE) mg/dL Urine Ketones 15 H (NEGATIVE) mg/dL Urine Occult Blood Trace-intact H (NEGATIVE) Urine Nitrite Negative (NEGATIVE) Urine Bilirubin Negative (NEGATIVE) Urine Urobilinogen 1.0 (0.2) EU/dL Ur Leukocyte Esterase Negative (NEGATIVE) U Hyaline Cast (Auto) Rare Urine RBC 0-5 (NOT SEEN) /HPF Urine WBC 0-5 (NOT SEEN) /HPF Ur Squamous Epith Cells Not seen (NOT SEEN) /HPF Urine Bacteria Not seen (NOT SEEN) /HPF Urine Mucus Not seen (NOT SEEN) /LPF Result Diagrams: 08/06/21 09:48 08/06/21 09:48 Sepsis Event Note - Focused Exam Vital Signs: Vital Signs Temp Pulse Resp BP Pulse Ox 08/06/21 09:20 36.6 C 80 18 127/78 98 - Problem List (1) Small bowel obstruction, partial SNOMED Code(s): 984500670 ICD Code: K56.600 - PARTIAL INTESTINAL OBSTRUCTION, UNSPECIFIED TO CAUSE Status: Acute Current Visit: Yes (2) Status post small bowel resection SNOMED Code(s): 666374765420202, 787862413, 578180588681255 ICD Code: Z90.49 - ACQUIRED ABSENCE OF OTHER SPECIFIED PARTS OF DIGESTIVE TRACT Status: Acute Current Visit: Yes (3) Hypertension SNOMED Code(s): 57806886 ICD Code: I10 - ESSENTIAL (PRIMARY) HYPERTENSION Status: Chronic Current Visit: Yes Qualifiers: Hypertension type: primary hypertension Qualified Code(s): I10 - Essential (primary) hypertension (4) Depression SNOMED Code(s): 91027842 ICD Code: F32.A - DEPRESSION, UNSPECIFIED Status: Chronic Current Visit: Yes Qualifiers: Depression Type: unspecified Qualified Code(s): F32.A - Depression, unspecified Problem List Initiated/Reviewed/Updated: Yes Orders Last 24hrs: Active Orders 24 hr Category Date Time Status Lactated Ringers [Ringers, Lactated] 1,000 ml Med 08/06/21 09:53 Active IV ONETIME Sodium Chloride 0.9% [Saline Flush] Med 08/06/21 09:34 Active 10 ml FLUSH ASDIRECTED PRN Peripheral IV Insertion Adult [OM.PC] Stat Oth 08/06/21 09:33 Ordered Medication Orders Lactated Ringer's (Ringers, Lactated) 1,000 mls @ 125 mls/hr IV ONETIME ONE Stop: 08/06/21 17:52 Last Admin: 08/06/21 10:11 Dose: 125 mls/hr Documented by: LIUDMILA Sodium Chloride (Sodium Chloride 0.9% 10 Ml Syringe) 10 ml FLUSH ASDIRECTED PRN PRN Reason: Keep Vein Open Assessment/Plan Comment:: 66 yo female admitted with partial small bowel obstruction following small bowel resection end of last week for an incarcerated hernia. #1 Partial small bowel obstruction #2 s/p small bowel resection - Already doing much better at the time of my evaluation. - NG tube deferred given mild symptoms and improvement already. - Will keep NPO for now and start clear liquids later if no recurrence of symptoms. - GS already consulted and they recommended monitoring her. They did want her transferred to [place] but there are no beds available. Will consider transfer at a later date if need be. - Continue oxycodone PRN per home orders. - Zofran and phenergan for nausea. - IV fluids. #3 Hypertension #4 Depression - Continue home medications. Patient will be admitted to acute. Detailed plans as above. Anticipate admission for 1-2 days. Will consider transfer to [facility] depending on clinical course. Given appearance of swelling consistent with hematoma, no pharmacologic VTE prophylaxis will be ordered. Code status is full - discussed on admission. - Mortality Measure Prognosis:: Good
[2021-08-06] MEDS ORDERED: Promethazine 12.5 MG in Sodium Chloride 0.9% 100 ML IV ONE (12:30)
[2021-08-06] MEDS ORDERED: Promethazine 12.5 MG in Sodium Chloride 0.9% 100 ML IV PRN (13:36)
[2021-08-06] MEDS ORDERED: oxyCODONE 5 MG Tab PO PRN ×2 (13:38→13:47)
[2021-08-06] MEDS ORDERED: Loratadine 10 MG Tab PO PRN (13:38)
[2021-08-06] MEDS: Lactated Ringers 1,000 ML IV SCH (14:45)
[2021-08-06] MEDS: Ondansetron 4 MG/2 ML SDV IV PRN (15:03)
[2021-08-06] MEDS: Sodium Chloride 0.9% 10 ML Syringe FLUSH PRN (15:03)
[2021-08-06] MEDS ORDERED: Heparin Sodium 5,000 Units/ML Vial SUBCUT SCH (16:00)
[2021-08-07] MEDS: Lactated Ringers 1,000 ML IV SCH (00:53)
[2021-08-07 07:18] LABS: CHLORIDE,CL 107 mmol/L (98-107); SODIUM,NA 145 mmol/L (136-145)
[2021-08-07 07:19] LABS: ANION GAP 10.7 mmol/L (5-15)
[2021-08-07] MEDS ORDERED: Hydrochlorothiazide/Triamterene 25-37.5 Tab PO SCH (08:00)
[2021-08-07] MEDS ORDERED: Polyethylene Glycol 3350 Powder 17 GM Packet PO SCH (08:00)
[2021-08-07] MEDS: Aspirin 81 MG Tab.EC PO SCH (08:07)
[2021-08-07] MEDS: Simvastatin 20 MG Tab PO SCH (08:07)
[2021-08-07] MEDS: Sertraline 50 MG Tab PO SCH (08:08)
[2021-08-07] MEDS ORDERED: Sodium Chloride 0.65% Nasal Spray 45 ML Bottle NAS PRN (08:26)
--- NOTE | 2021-08-07 08:33 | PCM.PN ---
- General Info Date of Service: 08/07/21 Subjective Update: 66 yo female hospital day #2 admitted with a partial small bowel obstruction. Is feeling pretty good this morning. Slept well last night. Had 2 black stools last evening with a negative hemoccult on the 2nd one. Has not had any further bowel movements. Passing gas normally. Abdominal pain is minimal. No fever. Has not really had nausea and has been tolerating clear liquids without any issues. No vomiting. URI symptoms are improving with the exception of congestion. She feels it is dry in the hospital and is wondering if there is anything to help with this. She is also wondering about tylenol for sinus pressure. - Review of Systems General: Reports: No Symptoms HEENT: Reports: Sinus Congestion, Rhinitis Pulmonary: Reports: No Symptoms Cardiovascular: Reports: No Symptoms Gastrointestinal: Reports: No Symptoms Genitourinary: Reports: No Symptoms Musculoskeletal: Reports: No Symptoms Skin: Reports: No Symptoms Neurological: Reports: No Symptoms - Patient Data Vitals - Most Recent: Last Vital Signs Temp 36.6 C 08/07/21 06:35 Pulse 72 08/07/21 06:35 Resp 16 08/07/21 06:35 BP 105/73 08/07/21 06:35 Pulse Ox 94 L 08/07/21 06:35 Weight - Most Recent: 77.111 kg I&O - Last 24 Hours: Intake & Output 08/06/21 08/07/21 08/07/21 22:59 06:59 14:59 Intake Total 200 1300 Output Total 200 450 Balance 0 850 Lab Results Last 24 Hours: Laboratory Results - last 24 hr 08/06/21 08/06/21 08/06/21 Range/Units 09:48 09:48 09:48 WBC 9.4 (4.0-10.0) x10^3/uL RBC 4.60 (4.00-5.50) x10^6/uL Hgb 13.6 D (12.0-16.0) g/dL Hct 38.7 (33.0-47.0) % MCV 84.1 (78.0-93.0) fL MCH 29.6 (26.0-32.0) pg MCHC 35.1 (32.0-36.0) g/dL RDW Coeff of Nestor 12.1 (10.0-15.0) % Plt Count 260 (130-400) x10^3/uL Immature Gran % (Auto) 0.10 (0.00-0.43) % Neut % (Auto) 77.0 (50.0-80.0) % Lymph % (Auto) 10.8 L (25.0-50.0) % Cameron % (Auto) 5.6 (2.0-11.0) % Eos % (Auto) 5.8 H (0.0-4.0) % Baso % (Auto) 0.7 (0.2-1.2) % Neut # (Auto) 7.2 (1.8-7.7) x10^3/uL Lymph # (Auto) 1.0 (1.0-4.8) x10^3/uL Cameron # (Auto) 0.5 (0.0-0.8) x10^3/uL Eos # (Auto) 0.5 (0.0-0.5) x10^3/uL Baso # (Auto) 0.1 (0.0-0.2) x10^3/uL Immature Gran # (Auto) 0.01 (0.00-0.07) x10^3/uL Sodium 144 (136-145) mmol/L Potassium 3.2 L (3.5-5.1) mmol/L Chloride 102 (98-107) mmol/L Carbon Dioxide 31 (21-32) mmol/L Anion Gap 14.2 (5-15) mmol/L BUN 12 (7-18) mg/dL Creatinine 0.9 (0.55-1.02) mg/dL Est Cr Clr Drug Dosing TNP Estimated GFR (MDRD) > 60 Glucose 118 H (70-99) mg/dL Lactic Acid 1.5 (0.4-2.0) mmol/L Calcium 10.1 (8.5-10.1) mg/dL Corrected Calcium 10.4 H (8.5-10.1) mg/dL Magnesium (1.8-2.4) mg/dL Total Bilirubin 0.5 (0.2-1.0) mg/dL AST 21 (15-37) U/L ALT 26 (14-59) U/L Alkaline Phosphatase 71 (46-116) U/L C-Reactive Protein 9.2 H (<=0.9) mg/dL Total Protein 6.9 (6.4-8.2) g/dL Albumin 3.6 (3.4-5.0) g/dL Globulin 3.3 Albumin/Globulin Ratio 1.09 Lipase 447 H (73-393) U/L Urine Color (YELLOW) Urine Appearance (CLEAR) Urine pH (5.0-8.0) Ur Specific [place] Urine Protein (NEGATIVE) mg/dL Urine Glucose (UA) (NEGATIVE) mg/dL Urine Ketones (NEGATIVE) mg/dL Urine Occult Blood (NEGATIVE) Urine Nitrite (NEGATIVE) Urine Bilirubin (NEGATIVE) Urine Urobilinogen (0.2) EU/dL Ur Leukocyte Esterase (NEGATIVE) U Hyaline Cast (Auto) Urine RBC (NOT SEEN) /HPF Urine WBC (NOT SEEN) /HPF Ur Squamous Epith Cells (NOT SEEN) /HPF Urine Bacteria (NOT SEEN) /HPF Urine Mucus (NOT SEEN) /LPF SARS CoV-2 RNA Rapid AJ (NEGATIVE) 08/06/21 08/06/21 08/06/21 Range/Units 09:48 10:13 12:23 WBC (4.0-10.0) x10^3/uL RBC (4.00-5.50) x10^6/uL Hgb (12.0-16.0) g/dL Hct (33.0-47.0) % MCV (78.0-93.0) fL MCH (26.0-32.0) pg MCHC (32.0-36.0) g/dL RDW Coeff of Nestor (10.0-15.0) % Plt Count (130-400) x10^3/uL Immature Gran % (Auto) (0.00-0.43) % Neut % (Auto) (50.0-80.0) % Lymph % (Auto) (25.0-50.0) % Cameron % (Auto) (2.0-11.0) % Eos % (Auto) (0.0-4.0) % Baso % (Auto) (0.2-1.2) % Neut # (Auto) (1.8-7.7) x10^3/uL Lymph # (Auto) (1.0-4.8) x10^3/uL Cameron # (Auto) (0.0-0.8) x10^3/uL Eos # (Auto) (0.0-0.5) x10^3/uL Baso # (Auto) (0.0-0.2) x10^3/uL Immature Gran # (Auto) (0.00-0.07) x10^3/uL Sodium (136-145) mmol/L Potassium (3.5-5.1) mmol/L Chloride (98-107) mmol/L Carbon Dioxide (21-32) mmol/L Anion Gap (5-15) mmol/L BUN (7-18) mg/dL Creatinine (0.55-1.02) mg/dL Est Cr Clr Drug Dosing Estimated GFR (MDRD) Glucose (70-99) mg/dL Lactic Acid (0.4-2.0) mmol/L Calcium (8.5-10.1) mg/dL Corrected Calcium (8.5-10.1) mg/dL Magnesium 1.7 L (1.8-2.4) mg/dL Total Bilirubin (0.2-1.0) mg/dL AST (15-37) U/L ALT (14-59) U/L Alkaline Phosphatase (46-116) U/L C-Reactive Protein (<=0.9) mg/dL Total Protein (6.4-8.2) g/dL Albumin (3.4-5.0) g/dL Globulin Albumin/Globulin Ratio Lipase (73-393) U/L Urine Color Yellow (YELLOW) Urine Appearance Clear (CLEAR) Urine pH >=9.0 H (5.0-8.0) Ur Specific [place] 1.015 Urine Protein Trace H (NEGATIVE) mg/dL Urine Glucose (UA) Negative (NEGATIVE) mg/dL Urine Ketones 15 H (NEGATIVE) mg/dL Urine Occult Blood Trace-intact H (NEGATIVE) Urine Nitrite Negative (NEGATIVE) Urine Bilirubin Negative (NEGATIVE) Urine Urobilinogen 1.0 (0.2) EU/dL Ur Leukocyte Esterase Negative (NEGATIVE) U Hyaline Cast (Auto) Rare Urine RBC 0-5 (NOT SEEN) /HPF Urine WBC 0-5 (NOT SEEN) /HPF Ur Squamous Epith Cells Not seen (NOT SEEN) /HPF Urine Bacteria Not seen (NOT SEEN) /HPF Urine Mucus Not seen (NOT SEEN) /LPF SARS CoV-2 RNA Rapid AJ Negative (NEGATIVE) 08/07/21 08/07/21 Range/Units 06:38 06:38 WBC 7.9 (4.0-10.0) x10^3/uL RBC 4.02 (4.00-5.50) x10^6/uL Hgb 11.9 L D (12.0-16.0) g/dL Hct 35.2 (33.0-47.0) % MCV 87.6 D (78.0-93.0) fL MCH 29.6 (26.0-32.0) pg MCHC 33.8 (32.0-36.0) g/dL RDW Coeff of Nestor 12.6 (10.0-15.0) % Plt Count 227 (130-400) x10^3/uL Immature Gran % (Auto) 0.40 (0.00-0.43) % Neut % (Auto) 64.1 (50.0-80.0) % Lymph % (Auto) 20.6 L (25.0-50.0) % Cameron % (Auto) 5.9 (2.0-11.0) % Eos % (Auto) 8.1 H (0.0-4.0) % Baso % (Auto) 0.9 (0.2-1.2) % Neut # (Auto) 5.1 (1.8-7.7) x10^3/uL Lymph # (Auto) 1.6 (1.0-4.8) x10^3/uL Cameron # (Auto) 0.5 (0.0-0.8) x10^3/uL Eos # (Auto) 0.6 H (0.0-0.5) x10^3/uL Baso # (Auto) 0.1 (0.0-0.2) x10^3/uL Immature Gran # (Auto) 0.03 (0.00-0.07) x10^3/uL Sodium 145 (136-145) mmol/L Potassium 3.7 (3.5-5.1) mmol/L Chloride 107 (98-107) mmol/L Carbon Dioxide 31 (21-32) mmol/L Anion Gap 10.7 (5-15) mmol/L BUN 8 (7-18) mg/dL Creatinine 0.9 (0.55-1.02) mg/dL Est Cr Clr Drug Dosing 54.53 Estimated GFR (MDRD) > 60 Glucose 89 (70-99) mg/dL Lactic Acid (0.4-2.0) mmol/L Calcium 9.0 (8.5-10.1) mg/dL Corrected Calcium (8.5-10.1) mg/dL Magnesium (1.8-2.4) mg/dL Total Bilirubin (0.2-1.0) mg/dL AST (15-37) U/L ALT (14-59) U/L Alkaline Phosphatase (46-116) U/L C-Reactive Protein (<=0.9) mg/dL Total Protein (6.4-8.2) g/dL Albumin (3.4-5.0) g/dL Globulin Albumin/Globulin Ratio Lipase (73-393) U/L Urine Color (YELLOW) Urine Appearance (CLEAR) Urine pH (5.0-8.0) Ur Specific [place] Urine Protein (NEGATIVE) mg/dL Urine Glucose (UA) (NEGATIVE) mg/dL Urine Ketones (NEGATIVE) mg/dL Urine Occult Blood (NEGATIVE) Urine Nitrite (NEGATIVE) Urine Bilirubin (NEGATIVE) Urine Urobilinogen (0.2) EU/dL Ur Leukocyte Esterase (NEGATIVE) U Hyaline Cast (Auto) Urine RBC (NOT SEEN) /HPF Urine WBC (NOT SEEN) /HPF Ur Squamous Epith Cells (NOT SEEN) /HPF Urine Bacteria (NOT SEEN) /HPF Urine Mucus (NOT SEEN) /LPF SARS CoV-2 RNA Rapid AJ (NEGATIVE) Med Orders - Current: Current Medications Acetaminophen (Acetaminophen 500 Mg Tab) 1,000 mg PO Q8H PRN PRN Reason: Pain Aspirin (Aspirin 81 Mg Tab.Ec) 81 mg PO DAILY [facility] Last Admin: 08/07/21 08:07 Dose: 81 mg Documented by: Promethazine HCl 12.5 mg/ (Sodium Chloride) 100 mls @ 200 mls/hr IV Q6H PRN PRN Reason: Nausea/Vomiting Lactated Ringer's (Ringers, Lactated) 1,000 mls @ 100 mls/hr IV ASDIRECTED [facility] Last Admin: 08/07/21 00:53 Dose: 100 mls/hr Documented by: Loratadine (Loratadine 10 Mg Tab) 10 mg PO DAILY PRN PRN Reason: allergy Ondansetron HCl (Ondansetron 4 Mg/2 Ml Sdv) 4 mg IV Q6H PRN PRN Reason: Nausea/Vomiting Last Admin: 08/06/21 15:03 Dose: 4 mg Documented by: Oxycodone HCl (Oxycodone 5 Mg Tab) 5 mg PO Q4H PRN PRN Reason: moderate pain Oxycodone HCl (Oxycodone 5 Mg Tab) 10 mg PO Q4H PRN PRN Reason: severe pain Polyethylene Glycol (Polyethylene Glycol 3350 Powder 17 Gm Packet) 17 gm PO DAILY [facility] Last Admin: 08/07/21 08:07 Dose: 17 gm Documented by: Sertraline HCl (Sertraline 50 Mg Tab) 50 mg PO DAILY [facility] Last Admin: 08/07/21 08:08 Dose: 50 mg Documented by: Simvastatin (Simvastatin 20 Mg Tab) 10 mg PO DAILY [facility] Last Admin: 08/07/21 08:07 Dose: 10 mg Documented by: Sodium Chloride (Sodium Chloride 0.9% 10 Ml Syringe) 10 ml FLUSH ASDIRECTED PRN PRN Reason: Keep Vein Open Last Admin: 08/06/21 15:03 Dose: 10 ml Documented by: Sodium Chloride (Sodium Chloride 0.65% Nasal Zahl 45 Ml Bottle) 0.5 ml SELENA Q6H PRN PRN Reason: nasal congestion Discontinued Medications Diphenhydramine HCl (Diphenhydramine 50 Mg/Ml Sdv) 12.5 mg IVPUSH ONETIME ONE Stop: 08/06/21 09:35 Last Admin: 08/06/21 10:17 Dose: 12.5 mg Documented by: Heparin Sodium (Porcine) (Heparin Sodium 5,000 Units/Ml Vial) 5,000 units SUBCUT Q8H [facility] Last Admin: 08/06/21 15:04 Dose: 5,000 units Documented by: Lactated Ringer's (Ringers, Lactated) 1,000 mls @ 125 mls/hr IV ONETIME ONE Stop: 08/06/21 17:52 Last Admin: 08/06/21 10:11 Dose: 125 mls/hr Documented by: Potassium Chloride 10 meq/ (Premix) 50 mls @ 50 mls/hr IV ONETIME ONE Stop: 08/06/21 13:15 Last Admin: 08/06/21 12:25 Dose: 50 mls/hr Documented by: Promethazine HCl 12.5 mg/ (Sodium Chloride) 100.5 mls @ 400 mls/hr IV ONETIME ONE Stop: 08/06/21 12:45 Last Admin: 08/06/21 12:39 Dose: 400 mls/hr Documented by: Iopamidol (Iopamidol 612 Mg/Ml 100 Ml Bottle) 75 ml IVPUSH ONETIME ONE Stop: 08/06/21 10:51 Last Admin: 08/06/21 11:04 Dose: Not Given Documented by: Ondansetron HCl (Ondansetron 4 Mg/2 Ml Sdv) 4 mg IV ONETIME ONE Stop: 08/06/21 09:35 Last Admin: 08/06/21 10:12 Dose: 4 mg Documented by: Triamterene/Hydrochlorothiazide (Hydrochlorothiazide/Triamterene 25-37.5 Tab) 1 each PO DAILY [facility] - Exam General: Alert, Oriented, Cooperative, No Acute Distress HEENT: Mucous Membr. Moist/[place] Neck: Supple, Trachea Midline, No Thyromegaly. No: Lymphadenopathy Lungs: Clear to Auscultation, Normal Respiratory Effort Cardiovascular: Regular Rate, Regular Rhythm, No Murmurs GI/Abdominal Exam: Normal Bowel Sounds, Soft, Distended (about the same as yesterday), Tender (minimal today). No: Guarding, Rigid, Rebound Extremities: Normal Inspection, Non-Tender, No Pedal Edema, Normal Capillary Refill Peripheral Pulses: 2+: Radial (L), Radial (R) Skin: Warm, Dry, Intact Neurological: No New Focal Deficit - Patient Data Lab Results Last 24 hrs: Laboratory Results - last 24 hr 08/06/21 08/06/21 08/06/21 Range/Units 09:48 09:48 09:48 WBC 9.4 (4.0-10.0) x10^3/uL RBC 4.60 (4.00-5.50) x10^6/uL Hgb 13.6 D (12.0-16.0) g/dL Hct 38.7 (33.0-47.0) % MCV 84.1 (78.0-93.0) fL MCH 29.6 (26.0-32.0) pg MCHC 35.1 (32.0-36.0) g/dL RDW Coeff of Nestor 12.1 (10.0-15.0) % Plt Count 260 (130-400) x10^3/uL Immature Gran % (Auto) 0.10 (0.00-0.43) % Neut % (Auto) 77.0 (50.0-80.0) % Lymph % (Auto) 10.8 L (25.0-50.0) % Cameron % (Auto) 5.6 (2.0-11.0) % Eos % (Auto) 5.8 H (0.0-4.0) % Baso % (Auto) 0.7 (0.2-1.2) % Neut # (Auto) 7.2 (1.8-7.7) x10^3/uL Lymph # (Auto) 1.0 (1.0-4.8) x10^3/uL Cameron # (Auto) 0.5 (0.0-0.8) x10^3/uL Eos # (Auto) 0.5 (0.0-0.5) x10^3/uL Baso # (Auto) 0.1 (0.0-0.2) x10^3/uL Immature Gran # (Auto) 0.01 (0.00-0.07) x10^3/uL Sodium 144 (136-145) mmol/L Potassium 3.2 L (3.5-5.1) mmol/L Chloride 102 (98-107) mmol/L Carbon Dioxide 31 (21-32) mmol/L Anion Gap 14.2 (5-15) mmol/L BUN 12 (7-18) mg/dL Creatinine 0.9 (0.55-1.02) mg/dL Est Cr Clr Drug Dosing TNP Estimated GFR (MDRD) > 60 Glucose 118 H (70-99) mg/dL Lactic Acid 1.5 (0.4-2.0) mmol/L Calcium 10.1 (8.5-10.1) mg/dL Corrected Calcium 10.4 H (8.5-10.1) mg/dL Magnesium (1.8-2.4) mg/dL Total Bilirubin 0.5 (0.2-1.0) mg/dL AST 21 (15-37) U/L ALT 26 (14-59) U/L Alkaline Phosphatase 71 (46-116) U/L C-Reactive Protein 9.2 H (<=0.9) mg/dL Total Protein 6.9 (6.4-8.2) g/dL Albumin 3.6 (3.4-5.0) g/dL Globulin 3.3 Albumin/Globulin Ratio 1.09 Lipase 447 H (73-393) U/L Urine Color (YELLOW) Urine Appearance (CLEAR) Urine pH (5.0-8.0) Ur Specific [place] Urine Protein (NEGATIVE) mg/dL Urine Glucose (UA) (NEGATIVE) mg/dL Urine Ketones (NEGATIVE) mg/dL Urine Occult Blood (NEGATIVE) Urine Nitrite (NEGATIVE) Urine Bilirubin (NEGATIVE) Urine Urobilinogen (0.2) EU/dL Ur Leukocyte Esterase (NEGATIVE) U Hyaline Cast (Auto) Urine RBC (NOT SEEN) /HPF Urine WBC (NOT SEEN) /HPF Ur Squamous Epith Cells (NOT SEEN) /HPF Urine Bacteria (NOT SEEN) /HPF Urine Mucus (NOT SEEN) /LPF SARS CoV-2 RNA Rapid AJ (NEGATIVE) 08/06/21 08/06/21 08/06/21 Range/Units 09:48 10:13 12:23 WBC (4.0-10.0) x10^3/uL RBC (4.00-5.50) x10^6/uL Hgb (12.0-16.0) g/dL Hct (33.0-47.0) % MCV (78.0-93.0) fL MCH (26.0-32.0) pg MCHC (32.0-36.0) g/dL RDW Coeff of Nestor (10.0-15.0) % Plt Count (130-400) x10^3/uL Immature Gran % (Auto) (0.00-0.43) % Neut % (Auto) (50.0-80.0) % Lymph % (Auto) (25.0-50.0) % [place] % (Auto) (2.0-11.0) % Eos % (Auto) (0.0-4.0) % Baso % (Auto) (0.2-1.2) % Neut # (Auto) (1.8-7.7) x10^3/uL Lymph # (Auto) (1.0-4.8) x10^3/uL [place] # (Auto) (0.0-0.8) x10^3/uL Eos # (Auto) (0.0-0.5) x10^3/uL Baso # (Auto) (0.0-0.2) x10^3/uL Immature Gran # (Auto) (0.00-0.07) x10^3/uL Sodium (136-145) mmol/L Potassium (3.5-5.1) mmol/L Chloride (98-107) mmol/L Carbon Dioxide (21-32) mmol/L Anion Gap (5-15) mmol/L BUN (7-18) mg/dL Creatinine (0.55-1.02) mg/dL Est Cr Clr Drug Dosing Estimated GFR (MDRD) Glucose (70-99) mg/dL Lactic Acid (0.4-2.0) mmol/L Calcium (8.5-10.1) mg/dL Corrected Calcium (8.5-10.1) mg/dL Magnesium 1.7 L (1.8-2.4) mg/dL Total Bilirubin (0.2-1.0) mg/dL AST (15-37) U/L ALT (14-59) U/L Alkaline Phosphatase (46-116) U/L C-Reactive Protein (<=0.9) mg/dL Total Protein (6.4-8.2) g/dL Albumin (3.4-5.0) g/dL Globulin Albumin/Globulin Ratio Lipase (73-393) U/L Urine Color Yellow (YELLOW) Urine Appearance Clear (CLEAR) Urine pH >=9.0 H (5.0-8.0) Ur Specific [place] 1.015 Urine Protein Trace H (NEGATIVE) mg/dL Urine Glucose (UA) Negative (NEGATIVE) mg/dL Urine Ketones 15 H (NEGATIVE) mg/dL Urine Occult Blood Trace-intact H (NEGATIVE) Urine Nitrite Negative (NEGATIVE) Urine Bilirubin Negative (NEGATIVE) Urine Urobilinogen 1.0 (0.2) EU/dL Ur Leukocyte Esterase Negative (NEGATIVE) U Hyaline Cast (Auto) Rare Urine RBC 0-5 (NOT SEEN) /HPF Urine WBC 0-5 (NOT SEEN) /HPF Ur Squamous Epith Cells Not seen (NOT SEEN) /HPF Urine Bacteria Not seen (NOT SEEN) /HPF Urine Mucus Not seen (NOT SEEN) /LPF SARS CoV-2 RNA Rapid AJ Negative (NEGATIVE) 08/07/21 08/07/21 Range/Units 06:38 06:38 WBC 7.9 (4.0-10.0) x10^3/uL RBC 4.02 (4.00-5.50) x10^6/uL Hgb 11.9 L D (12.0-16.0) g/dL Hct 35.2 (33.0-47.0) % MCV 87.6 D (78.0-93.0) fL MCH 29.6 (26.0-32.0) pg MCHC 33.8 (32.0-36.0) g/dL RDW Coeff of Nestor 12.6 (10.0-15.0) % Plt Count 227 (130-400) x10^3/uL Immature Gran % (Auto) 0.40 (0.00-0.43) % Neut % (Auto) 64.1 (50.0-80.0) % Lymph % (Auto) 20.6 L (25.0-50.0) % [place] % (Auto) 5.9 (2.0-11.0) % Eos % (Auto) 8.1 H (0.0-4.0) % Baso % (Auto) 0.9 (0.2-1.2) % Neut # (Auto) 5.1 (1.8-7.7) x10^3/uL Lymph # (Auto) 1.6 (1.0-4.8) x10^3/uL [place] # (Auto) 0.5 (0.0-0.8) x10^3/uL Eos # (Auto) 0.6 H (0.0-0.5) x10^3/uL Baso # (Auto) 0.1 (0.0-0.2) x10^3/uL Immature Gran # (Auto) 0.03 (0.00-0.07) x10^3/uL Sodium 145 (136-145) mmol/L Potassium 3.7 (3.5-5.1) mmol/L Chloride 107 (98-107) mmol/L Carbon Dioxide 31 (21-32) mmol/L Anion Gap 10.7 (5-15) mmol/L BUN 8 (7-18) mg/dL Creatinine 0.9 (0.55-1.02) mg/dL Est Cr Clr Drug Dosing 54.53 Estimated GFR (MDRD) > 60 Glucose 89 (70-99) mg/dL Lactic Acid (0.4-2.0) mmol/L Calcium 9.0 (8.5-10.1) mg/dL Corrected Calcium (8.5-10.1) mg/dL Magnesium (1.8-2.4) mg/dL Total Bilirubin (0.2-1.0) mg/dL AST (15-37) U/L ALT (14-59) U/L Alkaline Phosphatase (46-116) U/L C-Reactive Protein (<=0.9) mg/dL Total Protein (6.4-8.2) g/dL Albumin (3.4-5.0) g/dL Globulin Albumin/Globulin Ratio Lipase (73-393) U/L Urine Color (YELLOW) Urine Appearance (CLEAR) Urine pH (5.0-8.0) Ur Specific [place] Urine Protein (NEGATIVE) mg/dL Urine Glucose (UA) (NEGATIVE) mg/dL Urine Ketones (NEGATIVE) mg/dL Urine Occult Blood (NEGATIVE) Urine Nitrite (NEGATIVE) Urine Bilirubin (NEGATIVE) Urine Urobilinogen (0.2) EU/dL Ur Leukocyte Esterase (NEGATIVE) U Hyaline Cast (Auto) Urine RBC (NOT SEEN) /HPF Urine WBC (NOT SEEN) /HPF Ur Squamous Epith Cells (NOT SEEN) /HPF Urine Bacteria (NOT SEEN) /HPF Urine Mucus (NOT SEEN) /LPF SARS CoV-2 RNA Rapid AJ (NEGATIVE) Result Diagrams: 08/07/21 06:38 08/07/21 06:38 Sepsis Event Note - Evaluation Sepsis Screening Result: No Definite Risk - Focused Exam Vital Signs: Vital Signs Temp Pulse Resp BP Pulse Ox 08/07/21 06:35 36.6 C 72 16 105/73 94 L 08/07/21 00:57 79 16 133/73 97 08/06/21 22:16 37.0 C 76 18 122/66 95 - Problem List & Annotations (1) Postoperative anemia SNOMED Code(s): 784444926, 724520033 Code(s): D64.9 - ANEMIA, UNSPECIFIED Status: Acute Current Visit: Yes (2) Small bowel obstruction, partial SNOMED Code(s): 020132876 Code(s): K56.600 - PARTIAL INTESTINAL OBSTRUCTION, UNSPECIFIED TO CAUSE Status: Acute Current Visit: Yes (3) Status post small bowel resection SNOMED Code(s): 851718327422501, 724939171, 316077793299542 Code(s): Z90.49 - ACQUIRED ABSENCE OF OTHER SPECIFIED PARTS OF DIGESTIVE TRACT Status: Acute Current Visit: Yes (4) URI (upper respiratory infection) SNOMED Code(s): 68225615 Code(s): J06.9 - ACUTE UPPER RESPIRATORY INFECTION, UNSPECIFIED Status: Acute Current Visit: Yes (5) Hypertension SNOMED Code(s): 76685873 Code(s): I10 - ESSENTIAL (PRIMARY) HYPERTENSION Status: Chronic Current Visit: Yes Qualifiers: Hypertension type: primary hypertension Qualified Code(s): I10 - Essential (primary) hypertension (6) Depression SNOMED Code(s): 02638650 Code(s): F32.A - DEPRESSION, UNSPECIFIED Status: Chronic Current Visit: Yes Qualifiers: Depression Type: unspecified Qualified Code(s): F32.A - Depression, unspecified (7) Hyperlipidemia SNOMED Code(s): 08294879 Code(s): E78.5 - HYPERLIPIDEMIA, UNSPECIFIED Status: Chronic Current Visit: Yes Qualifiers: Hyperlipidemia type: unspecified Qualified Code(s): E78.5 - Hyperlipidemia, unspecified - Problem List Review Problem List Initiated/Reviewed/Updated: Yes - My Orders Last 24 Hours: My Active Orders 08/06/21 13:36 Notify Provider Vital Signs [RC] 06,10,14,18,22,02 Oxygen Therapy [RC] .PRN Up With Assistance [RC] 08,20 VTE/DVT Education [RC] PER UNIT ROUTINE Vital Signs [RC] 06,10,14,18,22,02 Ondansetron [Zofran] 4 mg IV Q6H PRN Promethazine [Phenergan] 12.5 mg Sodium Chloride 0.9% [Normal Saline] 100 ml IV Q6H Resuscitation Status Routine 08/06/21 13:38 Loratadine [Claritin] 10 mg PO DAILY PRN oxyCODONE 5 mg PO Q4H PRN 08/06/21 13:45 Lactated Ringers [Ringers, Lactated] 1,000 ml IV ASDIRECTED 08/06/21 13:47 oxyCODONE 10 mg PO Q4H PRN 08/06/21 17:10 Anticoagulation Contraindications VTE [AST] Click to Edit 08/06/21 Dinner Clear Liquid Diet [DIET] 08/07/21 08:00 Aspirin [Halfprin] 81 mg PO DAILY Sertraline [Zoloft] 50 mg PO DAILY Simvastatin [Zocor] 10 mg PO DAILY polyethylene glycoL 3350 [MiraLAX] 17 gm PO DAILY 08/07/21 08:26 Acetaminophen [Tylenol Extra Strength] 1,000 mg PO Q8H PRN Sodium Chloride 0.65% [[place]] 0.5 ml SELENA Q6H PRN - Assessment Assessment:: 66 yo female hospital day #2 admitted with a partial small bowel obstruction. Is feeling well this morning. - Plan Plan:: #1 Postoperative anemia - Main concern this am is her decrease in hemoglobin. - Stool negative for occult blood. - Could be hemodilution but a little more than expected for that. - Will recheck again later this am. - If continuing to decrease, will need to reach back out to surgery. - Otherwise, if stable and no further black stools, can advance to full liquids at lunch. #2 Partial small bowel obstruction #3 s/p small bowel resection - Symptoms essentially resolved. - See plan for possible advancement of her diet as above. - Continue oxycodone PRN per home orders. - Zofran and phenergan for nausea. - IV fluids will be discontinued after this current bag is done. #3 Hypertension #4 Depression - Continue home medications. Patient will remain on acute today - anticipate discharge in the next 24-48 hours depending on clinical course. Detailed plans as above. Will consider transfer to [place] depending on clinical course but she does not require this right now. Given appearance of swelling consistent with hematoma and downtrending hemoglobin, no pharmacologic VTE prophylaxis will be ordered; will reassess daily. Code status is full - discussed on admission.
[2021-08-07] MEDS: Acetaminophen 500 MG Tab PO PRN (09:02)
--- NOTE | 2021-08-07 12:46 | PCM.SN.2 ---
- Free Text/Narrative Note: Stool now positive for hemoccult. Hgb stable. Called and spoke with Dr. Zarco in general surgery. Since the patient is doing so well, he feels it is ok to stay the course. Continue clear liquids, pain and nausea control, and hemoglobin monitoring. Contact general surgery if anything changes. Discussed with patient and she voices understanding/agreement. Labs ordered for the am. Patient will be signed out to Francis García NP, for the holiday.
[2021-08-07 22:29] LABS: CHLORIDE,CL 108 mmol/L (98-107); SODIUM,NA 146 mmol/L (136-145)
[2021-08-07 22:30] LABS: ANION GAP 14.3 mmol/L (5-15)
[2021-08-08] MEDS: Sertraline 50 MG Tab PO SCH (07:30)
[2021-08-08] MEDS: Simvastatin 20 MG Tab PO SCH (07:30)
[2021-08-08] MEDS: Acetaminophen 500 MG Tab PO PRN (07:30)
[2021-08-08] MEDS: Aspirin 81 MG Tab.EC PO SCH (07:31)
[2021-08-08 08:13] LABS: CHLORIDE,CL 106 mmol/L (98-107); SODIUM,NA 145 mmol/L (136-145)
[2021-08-08 08:14] LABS: ANION GAP 14.6 mmol/L (5-15)
--- NOTE | 2021-08-08 13:21 | PN ---
Progress Note for TANISHA DOW Date: 08/08/2021 Room #: [id number] CHIEF COMPLAINT: Abdominal pain. SUBJECTIVE: Hospital day #3 on a 66-year-old female patient who was admitted to the acute care floor at [facility] for partial small bowel obstruction. The patient states she is feeling better today. She is up walking around. She did have nine bowel movements yesterday. She has only had two today. She states they are more formed. But they are still black in nature. The patient states her abdominal pain is tolerable. She has not had any nausea or vomiting. The patient denies any fevers or chills. No chest pain or palpitations. Patient denies any shortness of breath or cough. She did have some diarrhea yesterday but that has improved today. The patient is trying to stay well hydrated. The patient was started on clear liquids and seems to be tolerating okay. REVIEW OF SYSTEMS: See HPI. OBJECTIVE: Vital signs: Weight 167.8 pounds, temperature 98.4, pulse 67, blood pressure 114/77, respiratory rate 16, oxygen saturation 99 on room air. Skin: Intact, warm, and dry. Respiratory: Lungs are clear throughout, no wheezing, no rhonchi. Cardiovascular: Regular rhythm, no murmur. Abdomen: Bowel sounds hypoactive x4. Generalized tenderness. Abdomen is soft. Neurological: The patient is alert. Patient is oriented to person, place, and time. No focal neurological deficits. LABORATORY STUDIES: 1. CBC: White blood cell count 7.3, hemoglobin 12.0, hematocrit 35.7, platelets 233,000. 2. BMP: Sodium 145, potassium 3.6, chloride 106, CO2 of 28, anion gap 14.6, BUN 6, creatinine 0.8, GFR greater than 60, glucose 91, calcium 9.2. ASSESSMENT: 1. Postoperative anemia. 2. Small-bowel obstruction, partial. 3. Status post small-bowel resection. 4. Upper respiratory infection. 5. Hypertension. 6. Depression. 7. Hyperlipidemia. PLAN: Hospital day #3 on a 66-year-old female inpatient who was admitted for the above diagnoses. We will advance the patient's diet to full liquid as tolerated today. We will continue to monitor stools. Monitor vital signs. Continue all other medications the same. Overall, the patient is improving. May consider discharge home tomorrow if the patient continues to progress. The patient is a code 1. The patient does wish to transfer to a high level care should the need arise. The patient will continue on acute cares. We order laboratory work for tomorrow. TB: 08/08/2021 11:13:51 MODL: 08/08/2021 13:12:56 /[id number]
[2021-08-08] MEDS: Sodium Chloride 0.9% 10 ML Syringe FLUSH PRN (20:23)
[2021-08-09 07:18] LABS: CHLORIDE,CL 110 mmol/L (98-107); SODIUM,NA 145 mmol/L (136-145)
[2021-08-09 07:19] LABS: ANION GAP 10.3 mmol/L (5-15)
[2021-08-09] MEDS: Simvastatin 20 MG Tab PO SCH (07:38)
[2021-08-09] MEDS: Acetaminophen 500 MG Tab PO PRN (07:38)
[2021-08-09] MEDS: Sertraline 50 MG Tab PO SCH (07:38)
[2021-08-09] MEDS: Aspirin 81 MG Tab.EC PO SCH (07:38)
[2021-08-09] MEDS: Sodium Chloride 0.9% 10 ML Syringe FLUSH PRN (07:39)
[2021-08-09] MEDS: Ondansetron 4 MG/2 ML SDV IV PRN (07:39)
[2021-08-09] MEDS ORDERED: Potassium Chloride 20 MEQ Tab.ER PO ONE (07:47)
--- NOTE | 2021-08-09 13:30 | DISCH ---
ADMITTING DIAGNOSES: 1. Postoperative anemia. 2. Small-bowel obstruction, partial. 3. Status post small-bowel resection. 4. Upper respiratory infection. 5. Hypertension. 6. Depression. 7. Hyperlipidemia. DISCHARGE DIAGNOSES: 1. Postoperative anemia, improved. 2. Small-bowel obstruction, partial, improved. 3. Status post small-bowel obstruction. 4. Upper respiratory infection. 5. Hypertension. 6. Depression. 7. Hyperlipidemia. HISTORY OF PRESENT ILLNESS: A 66-year-old female patient who was admitted to the acute care floor at [facility] for a partial small-bowel obstruction. The patient had underwent an appendectomy and oophorectomy last week at [facility]. The patient presented to the emergency room at [facility] on 08/02/2021 and found to have a strangulated hernia. Therefore, she was transferred to [facility] in [place] for surgery. The patient was discharged home on Thursday and started not feeling well on the . The patient was admitted for further cares. She did have some low hemoglobin. She was also having black stools. This did resolve at the time of discharge. BRIEF HOSPITAL COURSE: The patient remained hemodynamically stable and afebrile. The patient did require nausea medication. The patient's diet was advanced to full liquid which she was tolerating at the day of discharge. The patient did not have any headaches, dizziness, or lightheadedness. No shortness of breath or cough. No chest pain or palpitations. Bowel sounds were active. Nausea had improved. Stooling had improved. She had some abdominal tenderness. No fevers or chills. CONSULTATIONS: Case Management. DISCHARGE DIET: Full-liquid, advance very slowly. ACTIVITY: As tolerated. DISCHARGE LABORATORY WORK: 1. CBC: White blood cell count 7.0, hemoglobin 11.0, hematocrit 31.7, platelets 201,000. 2. CMP: Sodium 145, potassium 3.3, chloride 110, CO2 of 28, anion gap 10.3, BUN 7, creatinine 0.8, GFR greater than 60, glucose 93, calcium 9.0, AST 42, ALT 58, alkaline phosphatase 66, total protein 5.6. DISCHARGE MEDICATIONS: 1. Dyazide 37.5/25 one capsule p.o. daily. 2. Claritin 10 mg 1 tablet p.o. daily as needed. 3. MiraLAX 17 g p.o. daily. 4. Oxycodone 5 to 10 mg orally every 4 hours as needed. 5. Simvastatin 10 mg 1 tablet p.o. daily. 6. Glucosamine chondroitin 1 tablet p.o. daily. 7. Sertraline 50 mg 1 tablet p.o. daily. 8. Aspirin 81 mg 1 tablet p.o. daily. 9. Caltrate 1 tablet p.o. daily with meals. ASSESSMENT: 1. Postoperative anemia. 2. Small-bowel obstruction, partial, improving. 3. Status post small-bowel resection. 4. Upper respiratory infection. 5. Hypertension. 6. Depression. 7. Hyperlipidemia. PLAN: A 66-year-old female patient was admitted to the acute care floor at [facility] for the above diagnoses. The patient will be discharged home today. I strongly stressed to the patient to slowly increase her diet. We will send a prescription in for Zofran to be taken as directed. We discussed reasons to return to the emergency room. The patient needs to stay active. The patient will follow up with Dr. Pai Celis next week in clinic. The patient was discharged in hemodynamically stable condition. TB: 08/09/2021 12:03:15 MODL: 08/09/2021 13:13:48 /[id number]
== END 2021-08-09 08:53 | disposition home or self-care (01) | DRG 812 ==
LOC: VM.ED 09:10 → VM.MS 12:15
PROVIDERS: ADMIT Family Medicine; ATTEND Family Medicine
DX: D64.9 Anemia, unspecified (principal); K56.600 Partial intestinal obstruction, unspecified as to cause; J06.9 Acute upper respiratory infection, unspecified; I10 Essential (primary) hypertension; F32.A Depression, unspecified; E78.5 Hyperlipidemia, unspecified; Z88.0 Allergy status to penicillin; Z79.82 Long term (current) use of aspirin; Z79.899 Other long term (current) drug therapy; H44.23 Degenerative myopia, bilateral; E78.00 Pure hypercholesterolemia, unspecified; N18.31 Chronic kidney disease, stage 3a; D25.9 Leiomyoma of uterus, unspecified; Z98.49 Cataract extraction status, unspecified eye; Z90.49 Acquired absence of other specified parts of digestive tract; Z90.710 Acquired absence of both cervix and uterus; R19.5 Other fecal abnormalities; Z20.822 Contact with and (suspected) exposure to COVID-19
CPT/HCPCS: 36415; 74177; 80048; 80053; 81001; 83605; 83690; 83735; 85025; 86140; 96374; 96375; 99284; 99285-25; A9270-GY; J1200; J1644; J2405; J2550; J3480; J7120; U0002